=== PATIENT | male | born 1985 | race Caucasian/White ===

== ENCOUNTER 2023-01-22 13:57 | Outpatient (CLI) | payer OTHER, SELFPAY ==
--- NOTE | ~2023-01-22 | XR_ITS ---
EXAMINATION: XR lumbar spine 2-3V DATE: 01/22/2023 14:31 INDICATION: Chronic low back pain TECHNIQUE: Anteroposterior and lateral views of the lumbar spine, and cone-down lateral view of the l umbosacral junction were obtained. COMPARISON: None. FINDINGS: Bone alignment is normal. There is no fracture. The vertebral body heights are maintained. There is moderate loss of intervertebral disc space height at L5-S1. There is moderate facet joint os teoarthritis at L4-5 and L5-S1. IMPRESSION: 1. Moderate lumbar spondylosis at L5-S1. Reviewed, dictated and finalized at location F.
--- NOTE | ~2023-01-22 | XR_ITS ---
EXAMINATION: XR sacrum coccyx min 2V INDICATION: Low back pain TECHNIQUE: Three views of the sacrum and coccyx are obtained. COMPARISON: None available FINDINGS: Bone alignment is normal. There is no fracture. No abnormal erosion or sclerosis of the sac roiliac joints identified. There is moderate lumbar spondylosis at L5-S1. IMPRESSION: 1. No acute osseous abnormality. Moderate lumbar spondylosis at L5-S1. Reviewed, dictated and finalized at location F.
[2023-01-22 19:20] LABS: Hematocrit 42.9 % (42.0-52.0); Hemoglobin 14.7 g/dL (14.0-18.0); Mean Corpuscular HGB Conc 34.3 g/dl (32-36); Mean Corpuscular Hemoglobin 31.5 pg (26-34); Mean Corpuscular Volume 91.9 fl (80-100); Mean Platelet Volume 11.1 fl (7.4-10.4); Platelet Count Result 247 k/mm3 (150-375); Red Blood Count 4.67 M/mm3 (4.6-6.20); Red Cell Distribution Width 11.8 % (11.5-14.5); White Blood Count 5.6 K/mm3 (4.5-10.0)
[2023-01-22 20:27] LABS: Hemoglobin A1C 5.4 % (<5.7)
[2023-01-22 20:28] LABS: Alanine Aminotransferase 52 U/L (6-50); Albumin Level 4.5 g/dL (3.5-5.1); Alkaline Phosphatase 77 U/L (38-126); Anion Gap 8 mmol/L (8-16); Aspartate Amino Transferase 55 U/L (17-59); Bilirubin,Total 0.6 mg/dL (0.2-1.3); Blood Urea Nitrogen 17 mg/dL (9-20); Calcium 9.1 mg/dL (8.4-10.2); Carbon Dioxide 22 mmol/L (22-30); Chloride 110 mmol/L (98-107); Cholesterol 229 mg/dL (0-200); Estimated Glomerular Filt Rate > 60; Glucose 93 mg/dL (65-110); HDL Direct 29 mg/dL; Potassium 4.2 mmol/L (3.4-5.0); Sodium 140 mmol/L (137-145); Triglycerides 74 mg/dL (<150)
[2023-01-22 20:39] LABS: LDL Cholesterol Direct 158 mg/dL
== END 2023-01-22 13:58 | disposition home or self-care (01) ==
LOC: ANHBWCLAB 13:59
PROVIDERS: PCP Nurse Practitioner Adult Health; Visit Provider Nurse Practitioner Adult Health
DX: Z13.9 Encounter for screening, unspecified (principal); E66.9 Obesity, unspecified; M47.26 Other spondylosis with radiculopathy, lumbar region
CPT/HCPCS: 36415; 72100; 72220; 80053; 80061; 83036; 84443; 85027

== ENCOUNTER 2023-08-07 09:48 | Outpatient (CLI) | payer OTHER, SELFPAY ==
[2023-08-07 18:57] LABS: Alanine Aminotransferase 30 U/L (6-50); Albumin Level 4.2 g/dL (3.5-5.1); Alkaline Phosphatase 65 U/L (38-126); Anion Gap 8 mmol/L (4-12); Aspartate Amino Transferase 62 U/L (17-59); Bilirubin,Total 0.4 mg/dL (0.2-1.3); Blood Urea Nitrogen 17 mg/dL (9-20); Calcium 8.8 mg/dL (8.4-10.2); Carbon Dioxide 22 mmol/L (22-30); Chloride 107 mmol/L (98-107); Cholesterol 193 mg/dL (0-200); Estimated Glomerular Filt Rate > 60; Glucose 102 mg/dL (65-110); HDL Direct 27 mg/dL; Magnesium 2.2 mg/dL (1.6-2.3); Potassium 4.4 mmol/L (3.4-5.0); Sodium 137 mmol/L (137-145); Triglycerides 208 mg/dL (<150)
[2023-08-07 19:13] LABS: LDL Cholesterol Direct 136 mg/dL
[2023-08-07 19:30] LABS: Basophils Percent Auto 0.7 % (0.2-1.2); Eosinophils Absolute Auto 0.1 K/mm3 (0-0.3); Eosinophils Percent Auto 1.7 % (0-4.4); Hemoglobin 13.9 g/dL (14.0-18.0); Immature Granulocyte Absolute 0.01 K/mm3 (0.00-0.031); Immature Granulocyte Percent A 0.2 % (0-0.5); Lymphocytes Absolute Auto 1.82 K/mm3 (0.9-3.2); Mean Corpuscular HGB Conc 32.3 g/dl (32-36); Mean Corpuscular Hemoglobin 31.3 pg (26-34); Mean Corpuscular Volume 96.8 fl (80-100); Mean Platelet Volume 12.1 fl (7.4-10.4); Monocytes Absolute Auto 0.4 K/mm3 (0.1-0.6); Monocytes Percent Auto 9.7 % (2.6-8.5); Neutrophils Absolute Auto 1.8 K/mm3 (1.3-6.7); Neutrophils Percent Auto 43.7 % (45.5-73.1); Platelet Count Result 187 k/mm3 (150-375); Red Blood Count 4.44 M/mm3 (4.6-6.20); White Blood Count 4.1 K/mm3 (4.5-10.0)
[2023-08-07 19:57] LABS: Folic Acid 8.2 ng/mL (2.76->20)
== END 2023-08-07 09:49 | disposition home or self-care (01) ==
LOC: ANHBWCLAB 09:49
PROVIDERS: PCP Nurse Practitioner Adult Health; Visit Provider Nurse Practitioner Adult Health
DX: G89.29 Other chronic pain (principal); I10 Essential (primary) hypertension
CPT/HCPCS: 36415; 80053; 80061; 82607; 82746; 83735; 84443; 85025

== ENCOUNTER 2023-12-02 11:51 | Day surgery (SDC) | payer OTHER, SELFPAY ==
[2023-11-25 14:23] VITALS: BMI 44.0
[2023-11-26 12:28] VITALS: BMI 43.1
--- NOTE | ~2023-12-02 | XR_ITS ---
EXAMINATION: XR fluoroscopy no charge DATE: 12/02/2023 13:05 CDT INDICATION: CRISTINA L5-S1 TRANSFORAMNAL EPI STEROID INJ . TECHNIQUE: 6 fluoroscopic images and for surgical clips of the lumbar spine were obtained during bila teral L5-S1 transforaminal epidural steroid injection, performed by Mauri Geronimo MD. I was not pr esent during the procedure. Fluoroscopy exposure time was 62.3 seconds. Air Kerma 70.25 mGy. COMPARISON: None FINDINGS/IMPRESSION: Fluoroscopic documentation of bilateral L5-S1 transforaminal epidural steroid injection. Please refer to the operative note for complete procedural details . Reviewed, dictated and finalized at location K.
--- NOTE | 2023-12-02 06:20 | PM.HPGS ---
History of Present Illness History of Present Illness Consent: Risks, benefits, and alternatives have been discussed and questions answered. Patient agrees to proceed with procedure. Chief complaint: Lumbosacral Radiculopathy, chronic pain syndrome Narrative: Jesus Ceballos is a 38 year old male with chronic, recalcitrant and disabling bilateral lumbosacral radiculopathy secondary to lumbosacral stenosis with failure to respond to aggressive conservative measures including PT, oral and topical analgesics, opioid and nonopioid analgesics, rest, time and activity/behavioral modification over the past 1-2 years who presents for bilateral L5-S1 transforaminal epidural steroid injections under fluoroscopic guidance and with contrast control. Review of Systems Review of Systems: Patient denies any new infectious, allergic, cardiopulmonary, neurologic or constitutional symptoms or changes in activity tolerance or exercise capacity including new or progressive SOB/BAH, peripheral edema, productive cough, dysuria, nausea/vomiting, diarrhea, weight change, fevers/chills/night sweats, new or progressive neurologic deficit, cognitive or mood changes since last seen, except as documented in the HPI. All systems reviewed & are unremarkable except as noted in HPI and below PMFSH Past Medical History Medical History (Updated 11/12/23 @ 19:58 by Mauri Geronimo MD) Anxiety Migraine Social History Social History (Updated 01/22/23 @ 13:16 by Lupe Rivers MA) Smoking status: Former smoker Tobacco type: cigarettes Second hand tobacco smoke exposure: Yes Additional smoking assessment comments: Quit 2017 Alcohol intake: current Alcohol use details: Beer Or Wine 6 Beers a month Substance use: current Substance use type: marijuana and heroin Other substance usage details: occasional marijuana; former heroin Lack of Transportation: YES Lack of Food: Never True Current Housing: I Have Housing Concerned About Future Housing: No Difficulty Paying Gas/Electric Bills: No Difficulty Paying for Meds: No Currently Unemployed: No Education: High School Diploma/GED Difficulty w/ Childcare or Family Care: No Living arrangements: with family Gender identity (if verbalized by the patient): Male Spiritual care concerns: No Agree to blood products: Yes Meds Home Medications and Allergies Home Medications Medication Instructions Recorded Confirmed Type gabapentin 800 mg tablet 800 mg PO QID 30 days #120 tabs 10/23/23 11/26/23 Rx celecoxib 200 mg capsule (Celebrex) 200 mg PO DAILY 30 days #30 caps 10/29/23 11/26/23 Rx hydroxyzine HCl 25 mg tablet 25 mg PO QHS PRN sleep #30 tabs 11/03/23 11/26/23 Rx duloxetine 60 mg capsule,delayed 60 mg PO QHS 30 days #30 caps 11/09/23 11/26/23 Rx release lisinopril 20 mg tablet 20 mg PO DAILY 11/26/23 11/26/23 History Allergies Allergy/AdvReac Type Severity Reaction Status Date / Time No Known Allergies Allergy Verified 11/26/23 12:26 Exam Narrative: The patient's physical exam is essentially unchanged from prior examination on 07/17/2023. Specifically, patient demonstrates normal lung capacity, tidal volume and respiratory rate without wheezes, crackles, rales or rubs. Heart rate and rhythm are regular without murmurs, gallops or rubs. No JVD. Pulses 2+ globally without increasing peripheral edema. AAOx3, NC/AT without acute distress or altered consciousness. Speech, cognition, mood and judgment at baseline and within normal limits. Const: General: cooperative Orientation/consciousness: patient oriented x3 Assessment and Plan Assessment and plan (1) Lumbosacral radiculopathy: Code(s): M54.17 - Radiculopathy, lumbosacral region Status: Acute (2) Spinal stenosis, lumbar region with neurogenic claudication: Code(s): M48.062 - Spinal stenosis, lumbar region with neurogenic claudication Status: Acute Plan proce
--- NOTE | 2023-12-02 06:23 | WPDHPUPDATE1 ---
History and Physical Update Update Date/Time: 12/02/23 06:23 History and Physical has been reviewed, including an updated exam of the patient. There are NO changes in the patient's condition. Risks, benefits, and alternatives have been discussed and questions answered. Patient agrees to proceed with procedure.
--- NOTE | 2023-12-02 06:23 | W.PM.PROC2 ---
Procedure Note - Detailed Date of Procedure 12/02/23 Pre-op Diagnosis Lumbosacral Radiculopathy, chronic pain syndrome Post-op Diagnosis Same Procedure Performed Bilateral Lumbar Transforaminal Epidural Steroid Injection under Fluoroscopic Guidance and with Contrast Control at L5-S1. Surgeon Mauri Geronimo MD Anesthesia Local Description of Procedure INFORMED CONSENT: Risks, benefits and alternatives to the procedure were discussed in detail with the patient who expressed explicit understanding and consent to proceed. Patient was informed verbally and in written form regarding the risks associated with the procedure including the low risk of serious infection, bleeding/bruising, allergic reaction, nerve or organ injury, paralysis, procedural site pain or discomfort, worsening pain and/or mobility, failure to treat and/or disfigurement. The patient expressed explicit understanding and consent to proceed. All materials required for the procedure were available prior to procedure start. Site and side was marked prior to procedure and confirmed in the presence of the patient. PROCEDURE IN DETAIL: The patient was brought to the procedural suite and placed in the prone position. Patient was made comfortable with use of pillows under the head/chest, hips and ankles. Skin overlying the injection site was prepared broadly with ChloraPrep applicator and draped in a sterile manner. Aseptic technique was employed throughout. The endplates of the vertebral body at the site of interest were aligned in the AP view. Ipsilateral oblique angulation was utilized to better visualize the neuroforamen of interest. Local anesthesia was established by infiltration with approximately 5 mL of 2% lidocaine via a 1-1/2 inch 27-gauge needle. A 22-gauge 3.5 inch Catalina (pencil point) spinal needle was advanced until the needle approached the 6 o'clock position on the pedicle just superior to the exiting nerve root. on the right at L5-S1. Lateral view was utilized to confirm appropriate position of the needle tip within the superior and posterior portion of the respective foramen. In an AP view, 1 mL of Omnipaque 300 contrast medium was injected after negative aspiration for CSF, blood or other bodily fluid, showing appropriate neurogram without evidence of intravascular or intrathecal spread of contrast. Digital subtraction imaging was used with an additional 1ml of the same contrast medium to confirm absence of intravascular contrast spread. A 1mL solution containing 6 mg of betamethasone was injected after negative repeat aspiration. Appropriate spread of the injectate was confirmed with washout of previously injected contrast. No parasthesias were elicited. Needle was removed completely intact without difficulty. The same exact procedure was repeated for all remaining levels on the ipsilateral side, left L5-S1 neuroforamen, modified as necessary to accommodate for the new target location with identical findings and results and no evidence of complication. Images were saved and documented in the patient chart. Patient's skin was cleaned and sterile bandage applied. The patient tolerated the procedure well. The patient was transported to the recovery area in stable condition where they were observed for an appropriate amount of time prior to discharge, without evidence of complication. The patient was instructed to avoid excessive activity for the next 48 hours, including climbing and frequent use of stairs. Showers only for 48 hours. They were instructed not to drive or operate heavy machinery for 24 hours. They are to monitor for severe headaches, fevers, chills, night sweats, erythema/swelling at the site or any other signs of infection, bleeding/bruising, bowel or bladder changes as well as new pain, weakness or numbness in the upper or lower extremity. Should they notice these changes, they are instructed to call our office immediately or report directly to the nearest Emergency De
[2023-12-02 12:43] VITALS: BP 141/88; PULSE 77; RESP 18; TEMP 37.3; O2SAT 96
[2023-12-02 13:07] VITALS: BP 139/79; PULSE 65; RESP 16; O2SAT 96
[2023-12-02 13:14] VITALS: BP 129/89; PULSE 62; RESP 16; O2SAT 97
[2023-12-02 13:20] VITALS: BP 128/89; PULSE 65; RESP 18; O2SAT 99
[2023-12-02] MEDS: BUPivacaine HCL 0.5% 10 ML AMP INFILTRATE (13:22)
[2023-12-02] MEDS: BETAMETHASONE SODIUM PHOSPHATE PF INJ 6 MG/ML VIAL 2 MG INFILTRATE (13:24)
[2023-12-02] MEDS: LIDOCAINE HCL 1% PF INJ 5 ML VIAL XX (13:26)
--- NOTE | 2023-12-02 13:33 | SUR.PHASEII ---
SPOUSE IS 30 MINUTES AWAY FROM ASC. PT AWARE.
== END 2023-12-02 14:05 | disposition home or self-care (01) ==
PROVIDERS: PCP Family Medicine; Visit Provider Anesthesiology Pain Medicine
PROC: (CPT 64483; principal; 2023-12-02 13:15)
DX: M54.17 Radiculopathy, lumbosacral region (principal); G89.4 Chronic pain syndrome
CPT/HCPCS: 64483 ×2; 99199

== ENCOUNTER 2023-12-31 00:49 | Day surgery (SDC) | payer OTHER, SELFPAY ==
[2023-12-22 13:34] VITALS: BMI 43.1
--- NOTE | 2023-12-22 13:54 | SUR.PREOP ---
Report to the Outpatient Waiting Room, entrance under the green pavilion located off [facility], at time 0600 on date 12/31/2023. Planned Procedure Time: 0730. Time changes happen often and if your time is changed the preop area will call you the afternoon before. - You and your visitor will be asked to self-screen and do not enter if you have any COVID symptoms. - A mask is optional within the hospital at this time. Patients may have clear liquids (water, carbonated beverages, clear teas, apple juice) until 3 hours prior to surgery with a maximum of 20 ounces. - No food from midnight until time of surgery - Infants may have breast milk until 4 hours before surgery, infant formula 6 hours prior to surgery. - Children will be allowed to drink immediately following surgery. If applicable, please bring a bottle or sippy cup to assist with drinking. Juice, water, soda, and popsicles are readily available. For infants on formula, please bring formula the day of surgery. Pacifiers are allowed. Take the following medications with a SIP of water the morning of surgery: Gabapentin DO NOT STOP ANY OF YOUR OTHER PRESCRIPTION MEDICATIONS PRIOR TO SURGERY ?EXCEPT THE FOLLOWING Medications to discontinue per physician Celebrex- 7 days Date to take last dose 12/24/23 Please no make-up, nail kuwaiti, hairspray, perfume, deodorant, or body powder the day of surgery. No jewelry (including any body piercings) or valuables the day of surgery, leave them at home. Please take a shower or bath the night before, or the morning of, surgery with an antibacterial soap. Wear comfortable, loose fitting clothing. Children are encouraged to wear pajamas. - Jewelry must be removed prior to entering the operating room. Rings and piercings that are not removed may be cut off. - The hospital will not accept responsibility for valuables. - Please leave all valuables, including medications, at home the day of surgery. If you are going home after surgery, a licensed yard driver must drive you home. - NO public transportation without another adult if you receive anesthesia. - We recommend that an adult stay with you for 24 hours following discharge. - We also recommend that you do not drive, make important decision, drink alcoholic beverages, or take any drugs that were not prescribed by your health care provider for at least 24 hours after your discharge time. For Pediatric surgeries, we recommend two adults accompany the child home. Follow any additional instructions given to you from your surgeon. If you or anyone in your household have experienced Covid symptoms in the past week, please notify your surgeon or the nurse liaison at the phone number below for possible testing. Telephone instructions given to ____patient and asked if any additional questions and then verbalized understanding. Patient advised to call surgeon office or pre surgery nurse liaison [phone] if any additional questions.
[2023-12-31] VITALS (23 sets, daily range): BP systolic 114–159; BP diastolic 43–98; PULSE 70–103; RESP 12–25; TEMP 36.2–37.2; O2SAT 93–99; BMI 44.6
--- NOTE | ~2023-12-31 | XR_ITS ---
EXAMINATION: XR fluoroscopy no charge DATE: 12/31/2023 10:03 INDICATION: Right L5-S1 microdiscectomy TECHNIQUE: Single lateral fluoroscopic images of the lumbosacral junction was obtained during procedu re performed by Dr. To. Radiologist was not present for the imaging or procedure. The amount of fluoroscopy time used during this procedure was 0.1 minutes. COMPARISON: None. FINDINGS: Images demonstrate soft tissue retractors and lap sponge markers project over a lucent surgical soft tissue defect posterior to the lumbosacral junction. Tip of a metallic probe projects over the cnc machinist ior elements at L5-S1. There is moderate disc height loss with vacuum phenomenon at L5-S1. IMPRESSION: 1. Fluoroscopy utilized during neurosurgical procedure the lumbosacral junction. See procedure note f or further detail. Reviewed, dictated and finalized at location A. IMPRESSION: 1. Fluoroscopy utilized during neurosurgical procedure the lumbosacral junction . See procedure note for further detail.
[2023-12-31] MEDS: LACTATED RINGERS 1,000 ML 30 ML IV CONT ×2 (07:10→11:21)
--- NOTE | 2023-12-31 07:15 | WPDHPUPDATE1 ---
History and Physical Update Update Date/Time: 12/31/23 07:15 History and Physical has been reviewed, including an updated exam of the patient. There are NO changes in the patient's condition. Risks, benefits, and alternatives have been discussed and questions answered. Patient agrees to proceed with procedure.
--- NOTE | 2023-12-31 07:19 | WPDANESEPPF ---
Anes - Initial Pre Proc Eval Procedure: Operation Date: 12/31/23 07:30 Proposed Procedures p Right L5-S1 Microdiscectomy - Eliza To MD Date/Time: 12/31/23 07:19 Surgeon: Eliza To MD Pre Op Diagnosis: lumbar radiculopathy Patient Data Age: 38 Gender: M Height: 1.78 m Weight: 141.3 kg Last Vital Signs Temp 97.1 F L 12/31/23 06:25 Pulse 70 12/31/23 06:25 Resp 18 12/31/23 06:25 BP 127/83 12/31/23 06:25 Pulse Ox 97 12/31/23 06:25 O2 Del Method Room Air 12/31/23 06:25 Allergies Allergy/AdvReac Type Severity Reaction Status Date / Time No Known Allergies Allergy Verified 12/31/23 07:07 Home Medications Medication Instructions Recorded Confirmed Type gabapentin 800 mg tablet 800 mg PO QID 30 days #120 tabs 10/23/23 12/22/23 Rx celecoxib 200 mg capsule (Celebrex) 200 mg PO DAILY 30 days #30 caps 10/29/23 12/31/23 Rx duloxetine 60 mg capsule,delayed 60 mg PO DAILY 12/02/23 12/22/23 History release hydroxyzine HCl 25 mg tablet 25 mg PO QHS PRN sleep #30 tabs 12/02/23 12/22/23 Rx lisinopril 20 mg tablet 20 mg PO DAILY 12/02/23 12/22/23 History tramadol 50 mg tablet 50 mg PO Q6H PRN pain #28 tabs 12/25/23 Rx Patient hx anesthesia problems: none Family hx anesthesia problems: none Results Review: All pre-operative results and documents have been reviewed as part of the pre-operative evaluation. [facility] Past Medical History Medical History Anxiety Migraine Social History Social History Smoking status: Never smoker Tobacco type: cigarettes Second hand tobacco smoke exposure: Yes Additional smoking assessment comments: Quit 2017 Alcohol intake: former Alcohol use details: Beer Or Wine 6 Beers a month Substance use: current Substance use type: marijuana Other substance usage details: occasional marijuana; former heroin Last use: 12/21/2023 Do You Feel Safe in your Home?: Yes Lack of Transportation: YES Lack of Food: Never True Current Housing: I Have Housing Concerned About Future Housing: No Difficulty Paying Gas/Electric Bills: No Difficulty Paying for Meds: No Currently Unemployed: No Education: High School Diploma/GED Difficulty w/ Childcare or Family Care: No Living arrangements: with family Gender identity (if verbalized by the patient): Male Spiritual care concerns: No Agree to blood products: Yes Anes - Eval Final PreProcedure Day of Procedure 12/31/23 07:19 Patient weight: morbidly obese Heart: regular rate and rhythm Lungs: clear to auscultation Airway: Mallampati scale class II Neurological: alert and oriented Last oral intake: >/= 8 hours ASA classification: III Emergent: no Anesthetic plan: proceed Anesthesia type and monitoring: general ETT and standard monitoring Results Review: All pre-operative results and documents have been reviewed as part of the pre-operative evaluation. HTN, hx of cavernous sinus malformation w seizures in 2017, had surgery at that time and no seizures since. Informed Consent: The patient's anesthetic plan and its attendant risks and benefits were discussed with the patient/family/POA. Questions were solicited and answers provided to the satisfaction of the patient/family/POA.
[2023-12-31] MEDS: ceFAZolin 3 GM/D5W 100 ML 100 ML IVPB (07:26)
[2023-12-31] MEDS: BUPIVACAINE/EPINEPHRINE 0.5% 50 ML VIAL 20 ML INFILTRATE (07:54)
--- NOTE | 2023-12-31 09:39 | PM.OP ---
Procedure Note - Brief Procedure Note - Brief Date of procedure: 12/31/23 lumbar radiculopathy Post-op diagnosis: Same Procedure performed: Right L5-S1 microdiskectomy Surgeon: Eliza To MD [employer] Driver: Jarek Anesthesia: GETA Findings: Quite a bit of epidural fat as well as an osteophyte near the facet which seemed to be compressing the nerve. Small disc bulge which was removed Estimated blood loss (mL): 25 Drains: No Packing: No Pathology: None sent Complications: None Condition: Stable Disposition: PACU
--- NOTE | 2023-12-31 10:00 | P.OP_ITS ---
Procedure Note - Detailed Date of Procedure 12/31/23 Pre-op Diagnosis lumbar radiculopathy Post-op Diagnosis Same Procedure Performed 1. Right L5-S1 microdiskectomy 2. Use of microscope for microsurgical dissection 3. Use of C-arm for fluoroscopy Surgeon Eliza To MD Logistics Officer Jarek Anesthesia General Indications Mr. Ceballos is a 38-year-old male with 2 year history worsened back and right radicular leg pain following what sounds like an S1 dermatome which has been resistant to medical management, physical therapy, and epidural steroid injections. He is neurologically intact on physical exam. MRI lumbar spine shows degenerative disc disease at L5-S1 with severe right lateral recess stenosis. Surgery in the form of microdiskectomy was recommended. Risks including bleeding, infection, pain, CSF leak, nerve damage, failure to relieve symptoms, recurrent disc herniation, weakness, paresthesias, and anesthetic complications were discussed. The patient provided written informed consent to proceed. Description of Procedure The patient was brought to the operating room, and general anesthesia was induced. The patient was placed prone on the open Brandin table, and all pressure points were padded. Compression devices were placed on the patient's calves. The skin was cleaned with alcohol. The C-arm was brought onto the field to localize the appropriate disc space and assist with incisional planning. The area was prepped and draped in usual sterile fashion. A time out was conducted, and pre-operative antibiotics were administered. Local anesthesia was injected into the planned incision. A skin incision was made with a 10-blade scalpel, and dissection was carried down with the monopolar cautery to open the fascia. The right lamina of L5 was exposed with the bovie. An upgoing curette was placed under the L5 lamina, and the C-arm was brought in to confirm the correct level. Due to the patient's body habitus, the exposure and critical portions of the procedure were more challenging than usual, and we had to obtain longer instruments in order to retract and to reach the lamina and epidural space. A self-retaining retractor was placed. The currette was used to clear the space under the lamina. A laminotomy was made using the Kerrison rongeurs and high-speed drill. The ligamentum flavum was opened with a currette and removed with Kerrisons. There was extensive epidural fat surrounding the nerve which was removed. There was also an osteophyte noted from the facet which seemed to be compressing the nerve root; this was removed with a kerrison. The S1 nerve root was visualized with a small disc bulge pressing upward on the nerve root. The root was from the disc and retracted. A nerve hook was used to open the annulus and remove small amounts of free disc material. A Woodsen was used to ensure the nerve root and dura were well decompressed. Hemostasis was achieved with Surgiflo and cottonoid patties. The area was copiously irrigated. No evidence of CSF leak was noted. The fascia was closed with 0-Vicryl in an interrupted fashion. The soft tissue was again copiously irrigated. The dermis was closed with 2-0 and 3-0 interrupted Vicryl. The skin was closed with subcuticular 4-0 monocryl. This was covered with skin glue. The patient was returned supine on the stretcher, extubated, and transferred to PACU without incident. Codes: 82188, 44235 Estimated Blood Loss 25 Drains No Packing No Pathology None sent Complications None Condition Stable Disposition PACU [facility] Billing Surgery - Charge Forward: Surgery Billing
[2023-12-31] MEDS: ONDANSETRON INJ 4 MG/2 ML VIAL IV PUSH (10:14)
[2023-12-31] MEDS: diphenhydrAMINE HCl INJ 50 MG/ML VIAL 12.5 MG IV PUSH (10:26)
[2023-12-31] MEDS: fentaNYL CITRATE INJ (*CRX) 100 MCG/2 ML VIAL 25 MCG IV PUSH ×4 (10:27→10:38)
[2023-12-31] MEDS: HYDROmorphone HCL INJ (*CRX) 1 MG/ML SYR 0.25 MG IV PUSH ×8 (10:45→11:49)
[2023-12-31] MEDS: diazePAM INJ (*CRX) 10 MG/2 ML SYRINGE 2 MG IV PUSH ×2 (11:19→11:35)
--- NOTE | 2023-12-31 13:43 | ADMGEN ---
This patient, Jesus Ceballos, was admitted to 3 [facility] Surg Room 313-01. Patient/family oriented to hospital policies and general routines including ID bracelet, bed and alarms, visiting hours, pain management, procedures, bathroom and other care routines, personal items, smoking policy, room service/diet, and visiting hours. Information on how to activate the Rapid Response Team has been discussed. Patient/Family are encouraged to report perceived risks to care and to ask questions if they do not understand what they are told or what they should do.
[2023-12-31] MEDS: GABAPENTIN 400 MG CAPSULE 800 MG PO ×3 (14:14→19:56)
[2023-12-31] MEDS: oxyCODONE HCL (*CRX) 5 MG TAB IR 10 MG PO ×3 (14:15→21:31)
[2023-12-31] MEDS: CYCLOBENZAPRINE HCL 10 MG TABLET PO ×2 (14:15→19:56)
[2023-12-31] MEDS: ACETAMINOPHEN 500 MG TABLET 1000 MG PO ×3 (14:16→22:20)
--- NOTE | 2023-12-31 14:58 | PCPTNOTE ---
Attempted PT evaluation, pt refused due to pain. Will follow.
[2023-12-31] MEDS: ceFAZolin 2 GM/D5W 50 ML 2 GM/50 ML BAG IVPB ×2 (15:46→22:28)
[2023-12-31] MEDS: MORPHINE SULFATE (*CRX) 2 MG/ML INJ IV PUSH ×3 (16:29→22:21)
[2023-12-31] MEDS: DOCUSATE SODIUM 100 MG CAPSULE PO (19:56)
[2023-12-31] MEDS: SODIUM CHLORIDE 0.9% IV 1,000 ML 100 ML IV CONT (19:58)
[2023-12-31] MEDS: hydrOXYzine HCL 25 MG TABLET PO (21:32)
[2024-01-01] MEDS: MORPHINE SULFATE (*CRX) 2 MG/ML INJ IV PUSH ×4 (00:20→09:45)
[2024-01-01] MEDS: oxyCODONE HCL (*CRX) 5 MG TAB IR 10 MG PO ×3 (02:57→12:09)
--- NOTE | 2024-01-01 03:01 | PC.NURSE ---
iv fluids stopped at this time due to patient refusing. patient has been drinking lots of water this shift, and states that he ate dinner
[2024-01-01 03:28] VITALS: BP 124/69; PULSE 69; RESP 16; TEMP 36.4; O2SAT 97
[2024-01-01] MEDS: ACETAMINOPHEN 500 MG TABLET 1000 MG PO ×2 (06:45→12:09)
[2024-01-01] MEDS: ceFAZolin 2 GM/D5W 50 ML 2 GM/50 ML BAG IVPB (06:45)
[2024-01-01 07:28] VITALS: BP 148/89; PULSE 80; RESP 16; TEMP 36.4; O2SAT 98
[2024-01-01] MEDS: DULoxetine HCL 60 MG CAPSULE.DR PO (08:14)
[2024-01-01] MEDS: DOCUSATE SODIUM 100 MG CAPSULE PO (08:14)
[2024-01-01] MEDS: GABAPENTIN 400 MG CAPSULE 800 MG PO ×2 (08:15→12:08)
[2024-01-01] MEDS: lisinopriL 20 MG TABLET PO (08:15)
--- NOTE | 2024-01-01 09:25 | WPDANESPN ---
Anes - Prog Note Post-Op Date/Time: 01/01/24 09:25 Cardiovascular status: normal Respiratory status: normal Airway patency: baseline Mental status: baseline Post-Op hydration status: normal Vital Signs: Last Vital Signs Temp 36.4 C 01/01/24 03:28 Pulse 69 01/01/24 03:28 Resp 16 01/01/24 03:28 BP 124/69 01/01/24 03:28 Pulse Ox 97 01/01/24 03:28 O2 Del Method Room Air 12/31/23 20:00 O2 Flow Rate 2 12/31/23 13:05 Pain Score (VAS): 10 I/O: Intake & Output 12/31/23 01/01/24 01/01/24 23:59 07:59 15:59 Intake Total 170 1043.8 240 Balance 170 1043.8 240 Post-procedural complaints: none Patient Feedback: Patient satisfied with anesthetic care.
--- NOTE | 2024-01-01 13:14 | WPDNEUROSGPN ---
Progress Note: A&P Assessment and Plan (1) Status post lumbar microdiscectomy: Code(s): Z98.890 - Other specified postprocedural states Status: Acute Plan -Discharge home today -Wound care and activity precautions reviewed at bedside -Discussed pain medication - ok to take 10mg oxycodone q 6h if really necessary. Also advised to take 1000mg tylenol every 6 hours as well -Follow up in clinic in about 3 weeks Subjective Date/time seen: 01/01/24 13:14 Interval history: Feeling overall better today with back pain but improved leg pain. He was able to ambulate. Tolerating PO. Review of Systems Review of Systems: All systems reviewed & are unremarkable except as noted in HPI and below Exam Narrative: Incision c/d/i with dermabond in place Full strength in legs Sensation intact to light touch Objective Data Vital Signs Vital Signs: Vital Signs - 24 hr 12/31/23 13:20 12/31/23 14:00 12/31/23 13:55 Temperature 97.8 F Pulse Rate 90 87 Respiratory Rate 14 18 Blood Pressure 148/79 H 149/93 H Pulse Oximetry 96 96 96 Oxygen Delivery Room Air Room Air 12/31/23 14:10 12/31/23 15:05 12/31/23 14:40 Temperature 98.2 F 98.0 F Pulse Rate 92 83 Respiratory Rate 18 18 Blood Pressure 154/98 H 153/90 H Pulse Oximetry 96 96 Oxygen Delivery Room Air 12/31/23 15:40 12/31/23 19:28 12/31/23 23:28 Temperature 99.0 F 98.7 F 98.0 F Pulse Rate 88 87 85 Respiratory Rate 18 20 20 Blood Pressure 153/90 H 127/85 125/78 Pulse Oximetry 96 96 94 Oxygen Delivery 12/31/23 20:00 01/01/24 03:28 01/01/24 07:28 Temperature 97.6 F 97.5 F L Pulse Rate 69 80 Respiratory Rate 16 16 Blood Pressure 124/69 148/89 H Pulse Oximetry 97 98 Oxygen Delivery Room Air Intake/Output Intake/Output: Intake & Output 12/29/23 12/30/23 12/31/23 01/01/24 23:59 23:59 23:59 23:59 Intake Total 970 1283.8 Balance 970 1283.8 Meds/Results Medications: Active Medications Generic Name Dose Route Start Last Admin Trade Name Freq PRN Reason Stop Dose Admin Acetaminophen 1,000 mg 12/31/23 12:30 01/01/24 12:09 Acetaminophen 500 Mg Tablet PO 1,000 mg Q6H TRACY Administration Al Hydrox/Mg Hydrox/Simethicone 20 ml 12/31/23 12:28 Mag Hydrox/Al Hydrox/Simeth 30 Ml Udc PO Q4H PRN Indigestion/Heartburn Bisacodyl 10 mg 12/31/23 12:28 Bisacodyl 10 Mg Suppository RECTAL DAILY PRN Constipation Cyclobenzaprine HCl 10 mg 12/31/23 12:29 12/31/23 19:56 Cyclobenzaprine Hcl 10 Mg Tablet PO 10 mg TID PRN Administration Muscle Spasms Docusate Sodium 100 mg 12/31/23 21:00 01/01/24 08:14 Docusate Sodium 100 Mg Capsule PO 100 mg Q12HR TRACY Administration Duloxetine HCl 60 mg 01/01/24 09:00 01/01/24 08:14 Duloxetine Hcl 60 Mg Capsule.Dr PO 60 mg DAILY TRACY Administration Gabapentin 800 mg 12/31/23 13:00 01/01/24 12:08 Gabapentin 400 Mg Capsule PO 800 mg QID TRACY Administration Hydroxyzine HCl 25 mg 12/31/23 12:31 12/31/23 21:32 Hydroxyzine Hcl 25 Mg Tablet PO 25 mg QHS PRN Administration sleep Cefazolin Sodium 2 gm in 50 mls @ 100 mls/hr 12/31/23 15:00 01/01/24 07:15 Ancef 2 Gm/D5w 50 Ml IVPB 01/01/24 14:59 Infused Q8H TRACY Infusion Lisinopril 20 mg 01/01/24 09:00 01/01/24 08:15 Lisinopril 20 Mg Tablet PO 20 mg DAILY TRACY Administration Morphine Sulfate 2 mg 12/31/23 12:29 01/01/24 09:45 Morphine Sulfate (*Crx) 2 Mg/Ml Inj IV PUSH 2 mg Q2H PRN Administration Breakthrough Pain Ondansetron HCl 4 mg 12/31/23 12:28 Ondansetron Inj 4 Mg/2 Ml Vial IV PUSH Q8H PRN Nausea And Vomiting Oxycodone HCl 5 mg 12/31/23 12:29 Oxycodone Hcl (*Crx) 5 Mg Tab Ir PO Q4H PRN Pain Rated 4-6 Oxycodone HCl 10 mg 12/31/23 12:29 01/01/24 12:09 Oxycodone Hcl (*Crx) 5 Mg Tab Ir PO 10 mg Q4H PRN Administration Pain Rated 7-10 Senna/Docusate Sodium
== END 2024-01-01 14:40 | disposition home or self-care (01) ==
LOC: ANHSURGERY 09:57 → ANH3MEDSUR 13:34
PROVIDERS: PCP Family Medicine; Visit Provider Neurological Surgery
PROC: (CPT 63030; principal; 2023-12-31 07:30)
DX: M51.37 Other intervertebral disc degeneration, lumbosacral region (principal); M48.07 Spinal stenosis, lumbosacral region; I10 Essential (primary) hypertension; F41.9 Anxiety disorder, unspecified; F12.90 Cannabis use, unspecified, uncomplicated; E66.01 Morbid (severe) obesity due to excess calories; Z68.41 Body mass index [BMI] 40.0-44.9, adult; Z79.891 Long term (current) use of opiate analgesic; Z98.890 Other specified postprocedural states; Z85.47 Personal history of malignant neoplasm of testis; Z87.891 Personal history of nicotine dependence
CPT/HCPCS: 63030; 97161; 97165; 99199; A9270; J0330; J0690; J1100; J1170; J1200; J2250; J2270; J2405; J2704; J3010; J3360; J7030; J7120